=== PATIENT | female | born 1990 | race Caucasian/White ===

== ENCOUNTER → 2018-02-05 | Outpatient (REF) | payer MEDICARE, MEDICAID ==
[~2018-02-05] MED LIST: ACE500 PO; AMOX-559 PO; AUG500 PO; BACI120O2 TP; BACOO OD; BENZ28CR14 TP; BENZ60GE TP; BISA-229 PO; CALC-707 PO; CALC1TAB24 PO; CHOL200038 PO; CIPR-344 PO; CIT20 PO; CLO5 PO; DIV500ER PO; DOC100 PO; FOLI20CA2 PO; GUAI-244 PO; GUAN1TAB21 PO; HYDC1T TOP; IBU200 PO; LITHOBID PO; LOP2 PO; MED150I IM; MENT120G15 TP; MET500 PO; MODA200T39 PO; MULT-775 PO; NAP250 PO; NAPR220C11 PO; NEPOD OS; OMEP-218 PO; ONDA-153 SL; QUASENSE PO; RISP-34 PO; RISP3TAB55 PO; TOP100 PO; TRAZ150T61 PO; ZIPR80CA10 PO; [UNRECOGNIZED DRUG - CODE] PO; [UNRECOGNIZED DRUG - CODE] PO
== END ==
LOC: ZZSENDIN 10:48
PROVIDERS: ATTEND Physician Assistant
DX: R32 Unspecified urinary incontinence (principal); R82.99 Other abnormal findings in urine
CPT/HCPCS: 81001; 87088

== ENCOUNTER 2018-04-10 03:14 | Day surgery (SDC) | payer MEDICARE, MEDICAID ==
[~2018-04-10] VITALS: Ht 162.6 cm; Wt 58.1 kg
[~2018-04-10 03:14] MED LIST changes: +ATOM80CA3 PO; +BUPR300T56 PO; +GUAI-537 PO; +LORA-636 PO
[2018-04-10] MEDS ORDERED: fentaNYL CITR 100 MCG/2 ML AMP ONE (06:27)
[2018-04-10] MEDS ORDERED: LIDOCAINE MPF 1% 5 ML VIAL ONE (06:28)
[2018-04-10] MEDS ORDERED: PROPOFOL EMUL(*) 10MG/ML 20 ML 20 ML ONE (06:28)
[2018-04-10] MEDS ORDERED: ONDANSETRON 4 MG/2 ML VIAL ONE (06:28)
[2018-04-10] MEDS ORDERED: DEXAMETHASONE SOD 4 MG/ML VIAL ONE (06:28)
[2018-04-10] MEDS ORDERED: LIDOCAINE/SOD BICARB 8.4% SYR ID ONE (08:20)
[2018-04-10] MEDS ORDERED: MIDAZOLAM 2 MG/2 ML VIAL IVP PRN (08:20)
[2018-04-10] MEDS ORDERED: FAMOTIDINE 20 MG TAB PO ONE (08:20)
[2018-04-10] MEDS ORDERED: NORMOSOL R SOLN(*) 1000 ML BAG 1,000 ML IV PRN (08:20)
[2018-04-10] MEDS ORDERED: LR(*) 1000 ML BAG 1,000 ML IV ONE (10:14)
--- NOTE | 2018-04-10 10:19 | Post Operative Note ---
Operative Note - ASSISTANT PORTFOLIO MANAGER Operative Day Date: Apr 10, 2018 Time: 10:15 Physicians Surgeon: santino Anesthesia: General Diagnosis Pre-Op Diagnosis: Unspecified intellectual disabilities Post-Op Diagnosis: same Procedure Findings: [id number] Procedure(s): exam under anesthesia pap smear Specimen Removed:(Maybe N/A): pap Complications: none Fluids Fluids: IV crystalloid Estimated Blood Loss: none Dictated Date OP Note Dictated: Apr 10, 2018 Time OP Note Dictated: 10:16 Copies to: BING HARTLEY MD, TRAVIS MD Apr 10, 2018 10:19
--- NOTE | 2018-04-10 14:26 | OPERATIVE REPORT 1 ---
EVENT DATE: April 10, 2018 SURGEON: Jordan Burden MD ANESTHESIOLOGIST: Alok Brown MD ANESTHESIA: General. PREOPERATIVE DIAGNOSIS Unspecified intellectual disabilities. POSTOPERATIVE DIAGNOSIS Unspecified intellectual disabilities. PROCEDURE PERFORMED Exam under anesthesia. ESTIMATED BLOOD LOSS None. FLUIDS IV crystalloid. DESCRIPTION OF PROCEDURE The patient was brought to the operating room with an IV in place, placed on the operating table and put under general anesthesia with propofol. She was then moved to the dorsal lithotomy position. A speculum was used to open the vagina and bring the cervix into view. Pap smear was obtained. The vagina was normal in its entire length. She had normal external genitalia. A bimanual examination was performed, revealing a normal 6 cm anteverted uterus, bilateral adnexa without masses and palpated normal. Abdominal exam was normal without masses. Liver and spleen were normal in size. Extremities normal in all respects. Breast eaxm was performed, bilateral breast without palpable masses or lesions. No visible skin deformities or nipple discharge. Lungs: Clear. Heart: Regular. Exam is otherwise normal. MTDD
== END 2018-04-10 11:12 | disposition home or self-care (01) ==
LOC: OR 03:14
PROVIDERS: ATTEND Obstetrics & Gynecology
DX: Z12.4 Encounter for screening for malignant neoplasm of cervix (principal); F79 Unspecified intellectual disabilities
CPT/HCPCS: A9270; G0101; J1100; J2001; J2704; J3010; Q0091; J2405

== ENCOUNTER → 2018-09-15 | Outpatient (REF) | payer MEDICARE, MEDICAID ==
[~2018-09-15] MED LIST changes: +CLIN30GE15 TP
== END ==
LOC: ZZSENDIN 10:23
PROVIDERS: ATTEND Physician Assistant
DX: R32 Unspecified urinary incontinence (principal); R82.79 Other abnormal findings on microbiological examination of urine
CPT/HCPCS: 87088

== ENCOUNTER → 2019-02-25 | Outpatient (REF) | payer MEDICARE, MEDICAID ==
[~2019-02-25] MED LIST changes: -NAPR220C11 PO; +NAPR220C62 PO
== END ==
LOC: ZZSENDIN 11:23
PROVIDERS: ATTEND Family Medicine
DX: E88.81 Metabolic syndrome and other insulin resistance (principal)

== ENCOUNTER → 2019-03-23 | Outpatient (REF) | payer MEDICARE, MEDICAID | LOC: LAB 03-16 13:20 → EDSTATUS 11:20 → ZZSENDIN 11:21 | PROVIDERS: ATTEND Family Medicine | DX: E88.81 Metabolic syndrome and other insulin resistance (principal) | CPT/HCPCS: 82533 ==

== ENCOUNTER → 2019-04-19 | Outpatient (CLI) | payer MEDICARE, MEDICAID | LOC: LAB 14:29 | PROVIDERS: ATTEND Family Medicine | DX: R63.5 Abnormal weight gain (principal) | CPT/HCPCS: 82530; 82533 ==